=== PATIENT | female | born 1995 | race Caucasian/White ===

== ENCOUNTER 2016-04-11 12:32 | Inpatient (IN) | payer MEDICAID ==
[~2016-04-11] VITALS: Ht 162.6 cm; Wt 103.0 kg
[2016-04-11] VITALS (10 sets, daily range): BP systolic 115–130; RESP 20; TEMP 97.6–98.1; Ht 162.6 cm; Wt 103.0 kg
[2016-04-11] MEDS ORDERED: METOCLOPRAMIDE 10 MG/2 ML VIAL IV PUSH PRN (13:55)
[2016-04-11] MEDS ORDERED: ACETAMINOPHEN 325 MG TAB PO PRN (13:55)
[2016-04-11] MEDS ORDERED: LIDOCAINE 1% 30 ML PF INFILTRATE ONE (13:55)
[2016-04-11] MEDS ORDERED: ALU/MAG/SIM 30 ML UDC PO PRN (13:55)
[2016-04-11] MEDS ORDERED: TERBUTALINE 1 MG/ML VIAL SUBQ PRN (13:55)
[2016-04-11] MEDS ORDERED: PROMETHAZINE 25 MG/ML VIAL IV PRN (13:55)
[2016-04-11] MEDS ORDERED: ONDANSETRON 4 MG VIAL IV PRN (13:55)
[2016-04-11] MEDS ORDERED: LACT RINGERS 1,000 ML IV SCH (13:55)
[2016-04-11] MEDS ORDERED: FAMOTIDINE 20 MG TAB PO PRN (13:55)
[2016-04-11] MEDS ORDERED: FAMOTIDINE 20 MG INJ IV PRN (13:55)
[2016-04-11] MEDS ORDERED: LIDOCAINE 1% BUFFERED 1 ML SYR INTRADERM PRN (13:55)
[2016-04-11] MEDS ORDERED: CEFAZOLIN (LD/OB) 100 ML IV PRN (13:55)
[2016-04-11] MEDS ORDERED: MORPHINE 5 MG/1 ML VIAL IV ONE (14:55)
[2016-04-11] MEDS ORDERED: ROPIV/FENT 0.2%-2MCG/ML 100 ML EPIDURAL ONE (14:59)
[2016-04-11] MEDS ORDERED: FENTANYL 100 MCG/2 ML AMP ONE (14:59)
[2016-04-11] MEDS ORDERED: LACT RINGERS 500 ML IV PRN (16:10)
[2016-04-11] MEDS ORDERED: SODIUM CHLORIDE 0.9% 500 ML IV PRN (16:10)
[2016-04-11] MEDS ORDERED: ROPIV/FENT 0.2%-2MCG/ML 100 ML EPIDURAL SCH (16:10)
[2016-04-11] MEDS ORDERED: FENTANYL 100 MCG/2 ML AMP EPIDURAL ONE (16:10)
[2016-04-11] MEDS ORDERED: LACT RINGERS 500 ML IV ONE (16:10)
[2016-04-11] MEDS: OXYTOCIN 15 UNITS/250 ML NS 250 ML IV SCH ×2 (16:54→16:56)
[2016-04-11] MEDS ORDERED: TDaP 0.5 ML VIAL IM.VACC ONE (18:50)
[2016-04-11] MEDS ORDERED: OXYTOCIN 15 UNITS/250 ML NS 250 ML IV SCH (18:50)
[2016-04-11] MEDS ORDERED: DERMOPLAST SPRAY TOPICAL PRN (18:50)
[2016-04-11] MEDS ORDERED: SALINE FLUSH 10 ML FLUSH PRN (18:50)
[2016-04-11] MEDS ORDERED: ASTRINGENT MED PADS 40'S TOPICAL PRN (18:50)
[2016-04-11] MEDS ORDERED: MAG HYDROX 30 ML UDC PO PRN (18:50)
[2016-04-11] MEDS: Ibuprofen 600 MG TAB PO SCH (19:14)
[2016-04-11] MEDS ORDERED: **ONLY ANESTEHSIA MAY ORDER OPIATES WHILE ON EPIDURAL XX SCH (20:00)
[2016-04-12] MEDS: Ibuprofen 600 MG TAB PO SCH ×5 (01:28→23:18)
[2016-04-12 02:22] VITALS: BP_SYST 123; RESP 20; TEMP 97.9
[2016-04-12 05:42] VITALS: BP_SYST 107; RESP 16; TEMP 97.8
[2016-04-12 09:00] VITALS: BP_SYST 130; RESP 18; TEMP 98
[2016-04-12] MEDS: DOCUSATE SOD 100 MG CAP PO SCH (09:55)
[2016-04-12 14:02] VITALS: BP_SYST 113; RESP 18; TEMP 97.6
[2016-04-12 16:56] VITALS: BP_SYST 131; RESP 18; TEMP 97.8
[2016-04-13 05:20] VITALS: BP_SYST 121; RESP 16; TEMP 97.7
[2016-04-13] MEDS: Ibuprofen 600 MG TAB PO SCH (05:20)
[2016-04-13] MEDS: DOCUSATE SOD 100 MG CAP PO SCH (08:41)
[2016-04-13 09:19] VITALS: BP_SYST 138
[2016-04-13 09:22] VITALS: RESP 18; TEMP 97.3
[2016-04-13 11:00] VITALS: BP_SYST 138; RESP 18; TEMP 97.3
== END 2016-04-13 11:32 | disposition home or self-care (01) | DRG 775 ==
LOC: LDOP 12:32 → LD 13:37 → OB 19:45
PROVIDERS: ADMIT Obstetrics & Gynecology; ATTEND Obstetrics & Gynecology
PROC: 10E0XZZ Delivery of Products of Conception, External Approach (ICD-10-PCS; principal; 2016-04-11)
PROC: 10907ZC Drainage of Amniotic Fluid, Therapeutic from Products of Conception, Via Natural or Artificial Opening (ICD-10-PCS; 2016-04-11)
PROC: 0HQ9XZZ Repair Perineum Skin, External Approach (ICD-10-PCS; 2016-04-11)
DX: O70.0 First degree perineal laceration during delivery (principal); Z37.0 Single live birth; Z3A.38 38 weeks gestation of pregnancy
CPT/HCPCS: 59025; 81002; 84112; 85014; 85018; 85025; 86850; 86900; 86901